=== PATIENT | male | born 1950 | race Caucasian/White ===

== ENCOUNTER 2017-06-15 09:55 | Inpatient (IN) | payer OTHER, MEDICARE ==
[~2017-06-15] VITALS: Ht 172.7 cm; Wt 105.3 kg
[~2017-06-15 09:55] MED LIST: AMPH10CA6 PO; BENA1TAB10 PO; BENA1TAB9 PO; BUPR1FIL3 PO; BUPR1FIL3 SL; BUPR450T PO; CELE100C PO; CELE200C PO; DIAZ5TAB4 PO; DULO30CA2 PO; FAMO-79 PO; FINA5TAB4 PO; GABA300C10 PO; HYDR2TAB40 PO; LIDO700A42 TD; METH4TAB2 PO; METH750T87 PO; MULT-658 PO; OMEG1CAP2 PO; OXYC15TA PO; POLY17PO5 PO; PRAM0.5T5 PO; TADA5TAB2 PO; TEST5GEL29 TD; TESTOSTERONE 1% TD; TIZA4TAB PO
[2017-06-15] MEDS ORDERED: VANCOMYCIN PER PHARMACY MC STA (10:11)
[2017-06-15] MEDS ORDERED: LACTATED RINGERS 1,000 ML IV SCH (10:40)
[2017-06-15] MEDS ORDERED: LIDOCAINE 1%, 2ML ONE (10:41)
[2017-06-15 10:46] VITALS: BP 130/82
[2017-06-15] MEDS ORDERED: LIDOCAINE 1%, 2ML SQ PRN (11:00)
[2017-06-15] MEDS ORDERED: OxyconTIN ER 10 MG TAB.ER PO ONE (11:00)
[2017-06-15] MEDS ORDERED: FAMOTIDINE 20 MG TABLET PO ONE (11:00)
[2017-06-15] MEDS ORDERED: ACETAMINOPHEN 500 MG TABLET PO ONE (11:00)
[2017-06-15] MEDS ORDERED: FENTANYL PF 250 MCG/5ML ONE ×2 (11:37→12:47)
[2017-06-15] MEDS ORDERED: MIDAZOLAM 1 MG/ML, 2ML ONE ×2 (11:37→12:47)
[2017-06-15] MEDS ORDERED: FAMOTIDINE 40 MG TABLET ONE (11:43)
[2017-06-15] MEDS ORDERED: OxyconTIN ER 10 MG TAB.ER ONE (11:44)
[2017-06-15] MEDS ORDERED: KETOROLAC 60 MG/2 ML ONE (11:52)
[2017-06-15] MEDS ORDERED: TRANEXAMIC ACID 100 MG/ML, 10ML ONE ×2 (11:52)
[2017-06-15] MEDS ORDERED: ROPIvacaine/PF 0.5%, 20 ML ONE (11:53)
[2017-06-15] MEDS ORDERED: EPINEPHRINE 1 MG/ML, 1ML ONE (11:53)
[2017-06-15] MEDS ORDERED: SODIUM CHLORIDE 0.9% 100 ML ONE (11:53)
[2017-06-15] MEDS ORDERED: PHARMACOKINETIC CONSULTATION MC ONE (12:00)
[2017-06-15] MEDS ORDERED: BISACODYL 10 MG SUPP PR PRN (12:30)
[2017-06-15] MEDS ORDERED: ZOLPIDEM 5MG TABLET PO PRN (12:30)
[2017-06-15] MEDS ORDERED: MAGNESIUM HYDROXIDE 8%, 30ML UDC PO PRN (12:30)
[2017-06-15] MEDS ORDERED: SENNA/DOCUSATE TABLET PO PRN (12:30)
[2017-06-15] MEDS ORDERED: DIPHENHYDRAMINE 25 MG CAPSULE PO PRN (12:30)
[2017-06-15] MEDS ORDERED: ONDANSETRON 2MG/ML, 2ML IV PRN (12:30)
[2017-06-15] MEDS ORDERED: PNEUMOCOCCAL 23 VACCINE IM-VACC ONE (12:30)
[2017-06-15] MEDS ORDERED: ONDANSETRON 4 MG TABLET PO PRN (12:30)
[2017-06-15] MEDS ORDERED: FLU VACC QS2017-18 (36MOS+) UP/PF 0.5 ML IM-VACC ONE (12:30)
[2017-06-15] MEDS ORDERED: HYDROcodone/APAP 5/325 TABLET PO PRN (12:30)
[2017-06-15] MEDS ORDERED: VANCOMYCIN 2,000 MG in SODIUM CHLORIDE 0.9% 500 ML IV ONE (12:30)
[2017-06-15] MEDS ORDERED: ACETAMINOPHEN 650 MG/20.3 ML UDC PO PRN (12:30)
[2017-06-15] MEDS ORDERED: CEFAZOLIN 1,000 MG ONE ×2 (12:47→13:31)
[2017-06-15] MEDS ORDERED: HYDROmorphone 1 MG/ML, 1ML ONE ×2 (12:47→13:45)
[2017-06-15] MEDS ORDERED: PROPOFOL 10 MG/ML, 20ML ONE ×2 (12:47→13:31)
[2017-06-15] MEDS ORDERED: DEXAMETHASONE 4 MG/ML, 1ML ONE ×3 (12:47→13:54)
[2017-06-15] MEDS ORDERED: PHENYLEPHRINE 10 MG/ML ONE (12:47)
[2017-06-15] MEDS ORDERED: EPHEDRINE 50 MG/ML, 1ML ONE ×2 (12:47→13:22)
[2017-06-15] MEDS ORDERED: ONDANSETRON 2MG/ML, 2ML ONE ×2 (12:47→13:31)
[2017-06-15] MEDS ORDERED: BUPIVACAINE/PF 0.25% ONE (13:22)
[2017-06-15] MEDS ORDERED: LIDOCAINE-MPF 2% ,5ML ONE (13:22)
[2017-06-15] MEDS ORDERED: FENTANYL PF 100 MCG/2ML IV PRN (13:30)
[2017-06-15] MEDS ORDERED: HYDROmorphone 1 MG/ML, 1ML IV PRN (13:30)
[2017-06-15] MEDS ORDERED: MEPERIDINE/PF 25MG/0.5ML IVPush PRN (13:30)
[2017-06-15] MEDS ORDERED: MIDAZOLAM 1 MG/ML, 2ML IV PRN (13:30)
[2017-06-15] MEDS ORDERED: OXYcodone 5 MG/5 ML ORAL.SOL UDC PO PRN (13:30)
[2017-06-15] MEDS ORDERED: PROMETHAZINE 25 MG/ML, 1ML IV PRN (13:30)
[2017-06-15] MEDS ORDERED: ROPIvacaine/PF 0.2%, 100ML 550 ML (check volume) INJ ONE (13:30)
[2017-06-15] MEDS ORDERED: LORazepam 2 MG/ML, 1ML IVPush PRN (13:30)
[2017-06-15] MEDS ORDERED: ONDANSETRON 2MG/ML, 2ML IVPush PRN (13:30)
[2017-06-15] MEDS ORDERED: DIAZEPAM 5 MG/ML, 2ML IVPush PRN (13:30)
[2017-06-15] MEDS ORDERED: LABETALOL 5MG/ML, 20ML IV PRN (13:30)
[2017-06-15] MEDS ORDERED: ALBUTEROL/IPRATROPIUM 2.5MG/0.5MG, 3 ML NPPB PRN (13:30)
[2017-06-15] MEDS ORDERED: hydrALAzine 20 MG/ML, 1ML IV PRN (13:30)
[2017-06-15] MEDS: OXYcodone IR 5MG TABLET PO PRN ×2 (17:13→21:47)
[2017-06-15] MEDS ORDERED: SCOPOLAMINE PATCH, 1.5MG PATCH.TD72 TD ONE (18:00)
[2017-06-15] MEDS: ASPIRIN 81 MG TABLET EC PO SCH (18:08)
[2017-06-15] MEDS: NS + 20MEQ KCL 1,000 ML IV SCH (18:13)
[2017-06-15 18:47] VITALS: BP 96/56
[2017-06-15] MEDS ORDERED: GABAPENTIN 300 MG CAPSULE PO SCH (21:00)
[2017-06-15] MEDS ORDERED: FINASTERIDE 5 MG TABLET PO SCH (21:00)
[2017-06-15] MEDS ORDERED: PRAMIPEXOLE 0.5MG TABLET PO SCH (21:00)
[2017-06-15] MEDS: DOCUSATE 100 MG CAPSULE PO SCH (21:47)
[2017-06-15] MEDS: CEFAZOLIN PMX 2GM/50ML 50 ML IVPB SCH (21:48)
[2017-06-15] MEDS: HYDROmorphone 2 MG/ML, 1ML IV PRN (22:04)
[2017-06-15 23:17] VITALS: BP 97/62
[2017-06-16 03:55] VITALS: BP 95/53
[2017-06-16] MEDS: HYDROmorphone 2 MG/ML, 1ML IV PRN ×2 (04:21→11:19)
[2017-06-16] MEDS: CEFAZOLIN PMX 2GM/50ML 50 ML IVPB SCH (04:37)
[2017-06-16 05:09] LABS: HEMATOCRIT 39.5 % (39.2-51.8); HEMOGLOBIN 13.5 g/dL (13.7-18.0)
[2017-06-16] MEDS: NS + 20MEQ KCL 1,000 ML IV SCH (05:30)
[2017-06-16] MEDS ORDERED: DEXAMETHASONE 4 MG/ML, 1ML IVPush SCH (06:00)
[2017-06-16] MEDS: ASPIRIN 81 MG TABLET EC PO SCH (06:14)
[2017-06-16] MEDS: OXYcodone IR 5MG TABLET PO PRN ×2 (06:14→11:08)
[2017-06-16 06:40] VITALS: BP 95/54
[2017-06-16] MEDS ORDERED: BENAZEPRIL 20 MG TABLET PO SCH (09:00)
[2017-06-16] MEDS ORDERED: TIZANIDINE 4MG TABLET PO SCH (09:00)
[2017-06-16] MEDS ORDERED: GABAPENTIN 300 MG CAPSULE PO SCH (09:00)
[2017-06-16] MEDS ORDERED: DULOXETINE 30 MG CAPSULE.DR PO SCH (09:00)
[2017-06-16] MEDS ORDERED: BUPROPION HCL HOMEMEDPO SCH (09:00)
[2017-06-16] MEDS ORDERED: HYDROCHLOROTHIAZIDE 12.5 MG CAPSULE PO SCH (09:00)
[2017-06-16] MEDS: DOCUSATE 100 MG CAPSULE PO SCH (11:09)
[2017-06-16] MEDS ORDERED: OXYC5TAB2 PO (11:52)
[2017-06-16] MEDS ORDERED: TRAM50TA2 PO (11:53)
[2017-06-16] MEDS ORDERED: MELO7.5T31 PO (11:54)
[2017-06-16] MEDS ORDERED: ONDA4TAB7 PO (11:55)
[2017-06-16] MEDS ORDERED: PNEUMOCOCCAL 23 VACCINE IM-VACC ONE (12:00)
[2017-06-16] MEDS ORDERED: FLU VACC QS2017-18 (36MOS+) UP/PF 0.5 ML IM-VACC ONE (12:00)
[2017-06-16 13:31] VITALS: BP 100/59
== END 2017-06-16 14:20 | disposition home or self-care (01) | DRG 468 ==
LOC: ORIP 09:55 → 4NOR 16:42
PROVIDERS: ADMIT Orthopaedic Surgery; ATTEND Orthopaedic Surgery
PROC: 0SRD0J9 Replacement of Left Knee Joint with Synthetic Substitute, Cemented, Open Approach (ICD-10-PCS; 2017-06-15)
PROC: 0SPD0JZ Removal of Synthetic Substitute from Left Knee Joint, Open Approach (ICD-10-PCS; principal; 2017-06-15 13:00)
DX: T84.023A Instability of internal left knee prosthesis, initial encounter (principal); I10 Essential (primary) hypertension; M25.462 Effusion, left knee; Y83.8 Other surgical procedures as the cause of abnormal reaction of the patient, or of later complication, without mention of misadventure at the time of the procedure; Y92.89 Other specified places as the place of occurrence of the external cause; Z23 Encounter for immunization
CPT/HCPCS: 36415; 85014; 85018; 86850; 86900; 86923; 87070; 87075; 87176; 87205; 90686; 90732; J0171; J0690; J1100; J1170; J1885; J2250; J2405; J2704; J2795; J3010; J3370; J3480; J3490; J2370; J7040; J7120